=== PATIENT | female | born 1960 | race American Indian/Alaskan Native ===

== ENCOUNTER 2017-05-23 01:00 | Emergency (ER) | payer MEDICAID, OTHER ==
[2017-05-23] MEDS ORDERED: BENADRYL PO ONE ×3 (01:24→02:58)
[2017-05-23] MEDS ORDERED: DELTASONE PO ONE (01:24)
[2017-05-23] MEDS ORDERED: PEPCID ONE (01:24)
[2017-05-23] MEDS ORDERED: DELTASONE ONE (01:24)
[2017-05-23] MEDS ORDERED: PEPCID PO ONE (01:24)
--- NOTE | 2017-05-23 05:04 | Emergency Department Report ---
HPI - General Chief Complaint: Allergic Reaction Time Seen by Provider: 05/23/17 02:58 - HPI HPI: This is a 56 y.o. female presenting with swollen lips and throat from unknown origin. Patient states she have shellfish allergy but she is sure didn't eat anything with shellfish. States she was eating dinner at home and her lips and throat began to swell. She took benadryl 50 mg po at home with minimal improvement. She is able to tolerate liquids but noticed difficulty swallowing candy bar while waiting. ED Past Medical Hx - Past Medical History Previous Medical History?: Yes Additional medical history: Back pain. Neuropathy - Surgical History Past Surgical History?: Yes Additional Surgical History: Left Wrist. Rt clavicle - Social History Smoking Status: Current Every Day Smoker Substance Use Type: Alcohol, Marijuana ED Review of Systems ROS: Stated complaint: ALLERGIC REACTION Other details as noted in HPI Constitutional: no symptoms reported, see HPI. denies: chills, diaphoresis, fever, malaise, weakness Eyes: as per HPI. denies: eye pain, eye discharge, vision change ENT: as per HPI, throat pain. denies: ear pain, dental pain, hearing loss, epistaxis, congestion Respiratory: no symptoms reported, see HPI. denies: cough, orthopnea, shortness of breath, SOB with exertion, SOB at rest, stridor, wheezing Cardiovascular: as per HPI. denies: chest pain, palpitations, dyspnea on exertion, orthopnea, edema, syncope, paroxysmal nocturnal dyspnea Skin: as per HPI, other (swollen lips and face). denies: rash, lesions, change in color, change in hair/nails, pruritus Neurological: as per HPI. denies: headache, weakness, numbness, paresthesias, confusion, abnormal gait, vertigo Psychiatric: as per HPI. denies: anxiety, depression, auditory hallucinations, visual hallucinations, homicidal thoughts, suicidal thoughts Physical Exam - Physical Exam Vital Signs: Vital Signs 05/23/17 01:17 Temperature 98.6 F Pulse Rate 88 Respiratory 20 Rate Blood Pressure 118/72 [Right] O2 Sat by Pulse 99 Oximetry ED Course Vital Signs 05/23/17 01:17 Temperature 98.6 F Pulse Rate 88 Respiratory 20 Rate Blood Pressure 118/72 [Right] O2 Sat by Pulse 99 Oximetry Critical care attestation.: If time is entered above; I have spent that time in minutes in the direct care of this critically ill patient, excluding procedure time. ED Disposition Condition: Stable Referrals: PRIMARY CARE, [Primary Care Provider] - 3-5 Days
--- NOTE | 2017-05-23 05:10 | Emergency Department Report ---
ED Allergic Reaction HPI - General Chief complaint: Allergic Reaction Stated complaint: ALLERGIC REACTION Time Seen by Provider: 05/23/17 02:58 Source: patient Mode of arrival: Ambulatory Limitations: No Limitations - History of Present Illness Initial Comments: This is a 56 y.o. female presenting with swollen lips and throat from unknown origin. Patient states she have shellfish allergy but she is sure didn't eat anything with shellfish. States she was eating dinner at home and her lips and throat began to swell. She took benadryl 50 mg po at home with minimal improvement. She is able to tolerate liquids but noticed difficulty swallowing candy bar while waiting. MD Complaint: allergic reaction, facial swelling -: Last night Exposure: unknown, food Symptoms: facial swelling, lip swelling, difficulty swallowing. denies: rash, itching, difficulty breathing, orolingual swelling, hoarseness, syncopy, dizziness, nausea, vomiting, abdominal pain Severity: moderate Treatment Prior to Arrival: benadryl Previous Allergy History: angioedema, other - Related Data Previous Rx's Medication Instructions Recorded Last Taken Type EPINEPHrine [Epipen 2-Pablo] 0.3 mg IJ ONCE 30 Days #1 05/23/17 Unknown Rx auto.injct Prednisone [predniSONE 10 mg 10 mg PO .TAPER #1 tab.ds.pk 05/23/17 Unknown Rx (6-Day Pack, 21 Tabs)] Allergies Allergy/AdvReac Type Severity Reaction Status Date / Time shellfish derived Allergy Swelling Verified 05/23/17 01:17 ED Review of Systems ROS: Stated complaint: ALLERGIC REACTION Other details as noted in HPI Constitutional: no symptoms reported, see HPI. denies: chills, diaphoresis, fever, malaise, weakness Eyes: as per HPI. denies: eye pain, eye discharge, vision change ENT: as per HPI, throat pain. denies: ear pain, dental pain, hearing loss, epistaxis, congestion Respiratory: no symptoms reported, see HPI. denies: cough, orthopnea, shortness of breath, SOB with exertion, SOB at rest, stridor, wheezing Cardiovascular: as per HPI. denies: chest pain, palpitations, dyspnea on exertion, orthopnea, edema, syncope, paroxysmal nocturnal dyspnea Skin: as per HPI, other (swollen lips and face). denies: rash, lesions, change in color, change in hair/nails, pruritus Neurological: as per HPI. denies: headache, weakness, numbness, paresthesias, confusion, abnormal gait, vertigo Psychiatric: as per HPI. denies: anxiety, depression, auditory hallucinations, visual hallucinations, homicidal thoughts, suicidal thoughts ED Past Medical Hx - Past Medical History Previous Medical History?: Yes Additional medical history: Back pain. Neuropathy - Surgical History Past Surgical History?: Yes Additional Surgical History: Left Wrist. Rt clavicle - Social History Smoking Status: Current Every Day Smoker Substance Use Type: Alcohol, Marijuana - Medications Home Medications: Home Medications Medication Instructions Recorded Confirmed Last Taken Type EPINEPHrine [Epipen 2-Pablo] 0.3 mg IJ ONCE 30 Days #1 05/23/17 Unknown Rx auto.injct Prednisone [predniSONE 10 mg 10 mg PO .TAPER #1 tab.ds.pk 05/23/17 Unknown Rx (6-Day Pack, 21 Tabs)] ED Physical Exam - General Limitations: No Limitations General appearance: alert, in no apparent distress - Head Head exam: Present: normal inspection - Eye Eye exam: Present: normal appearance, PERRL, periorbital swelling. Absent: scleral icterus, conjunctival injection, nystagmus, periorbital tenderness Pupils: Present: normal accommodation. Absent: irregular, unequal, miosis, mydriatic - ENT ENT exam: Present: normal exam, normal orophraynx, mucous membranes moist, TM's normal bilaterally, normal external ear exam, other (swollen tonsils, enlarged tongue, midline). Absent: mucous membranes dry - Neck Neck exam: Present: normal inspection, full ROM. Absent: tenderness, meningismus, lymphadenopathy, thyromegaly - Respiratory Respiratory exam: Present: normal lung sounds bilaterally. Absent: respiratory distress, wheezes, rales, rhonchi, stridor, chest wall tenderness, accessory muscle use, decreased breath sounds, prolonged expiratory - Cardiovascular Cardiovascular Exam: Present: regular rate, normal rhythm, normal heart sounds. Absent: bradycardia, tachycardia, irregular rhythm, systolic murmur, diastolic murmur, rubs, gallop, clicks, JVD, S3, S4 - Neurological Exam Neurological exam: Present: alert, oriented X3, CN II-XII intact, normal gait. Absent: altered, abnormal gait, motor sensory deficit, reflexes normal - Psychiatric Psychiatric exam: Present: normal affect, normal mood. Absent: depressed, agitated, anxious, flat affect, manic, homicidal ideation, suicidal ideation - Skin Skin exam: Present: warm, dry, intact, normal color. Absent: rash, cyanosis, diaphoretic, erythema, urticaria, vesicles, petechiae, pallor, abrasion, ecchymosis ED Course Vital Signs 05/23/17 01:17 Temperature 98.6 F Pulse Rate 88 Respiratory 20 Rate Blood Pressure 118/72 [Right] O2 Sat by Pulse 99 Oximetry Critical care attestation.: If time is entered above; I have spent that time in minutes in the direct care of this critically ill patient, excluding procedure time. ED Disposition Clinical Impression: Angioedema Qualifiers: Encounter type: initial encounter Qualified Code(s): T78.3XXA - Angioneurotic edema, initial encounter Disposition: TO HOME OR SELFCARE Is pt being admited?: No Does the pt Need Aspirin: No Condition: Stable Instructions: Angioedema (ED) Additional Instructions: Follow-up with automated logistics specialist for skin test. Prescriptions: EPINEPHrine [Epipen 2-Pablo] 0.3 mg IJ ONCE 30 Days #1 auto.injct Prednisone [predniSONE 10 mg (6-Day Pack, 21 Tabs)] 10 mg PO .TAPER #1 tab.ds.pk Referrals: PRIMARY CARE, [Primary Care Provider] - 3-5 Days [facility] [Other] - 3-5 Days Forms: Accompanied Note Time of Disposition: 05:18 Print Language: MONGOLIAN
[2017-05-23 05:31] VITALS: BP 121/76
== END 2017-05-23 05:31 | disposition home or self-care (01) ==
LOC: ED 01:00
DX: T78.3XXA Angioneurotic edema, initial encounter (principal); F17.200 Nicotine dependence, unspecified, uncomplicated; F12.10 Cannabis abuse, uncomplicated; Z91.013 Allergy to seafood
CPT/HCPCS: 99282; J7512

== ENCOUNTER 2017-06-05 09:14 | Emergency (ER) | payer MEDICAID ==
[2017-06-05 10:44] VITALS: BP 160/70
[2017-06-05] MEDS ORDERED: XYLOCAINE 2% INFILTRATI ONE (13:16)
[2017-06-05] MEDS ORDERED: NORCO 5/325 PO ONE (13:16)
[2017-06-05] MEDS ORDERED: BACTRIM DS PO ONE (13:17)
--- NOTE | 2017-06-05 13:19 | Emergency Department Report ---
- General Chief complaint: Skin/Abscess/Foreign Body Stated complaint: INSECT BITE Time Seen by Provider: 06/05/17 13:01 Source: patient Mode of arrival: Ambulatory Limitations: No Limitations - History of Present Illness Initial comments: 56-year-old female past medical history neuropathy restless leg syndrome presents with 2-3 days of discomfort below her right breast. Patient has discoloration near an area where she is concerned she may have been bitten by a spider. Visible abscess with surrounding cellulitis approximately 5-6 cm below right breast right upper quadrant. Patient denies nausea vomiting fever or chills. MD complaint: abscess/boil Onset/Timin -: days(s) Severity: moderate Severity scale (0 -10): 6 Quality: aching Improves with: none Worsens with: none Treatments Prior to Arrival: none - Related Data Previous Rx's Medication Instructions Recorded Last Taken Type EPINEPHrine [Epipen 2-Pablo] 0.3 mg IJ ONCE 30 Days #1 05/23/17 Unknown Rx auto.injct Prednisone [predniSONE 10 mg 10 mg PO .TAPER #1 tab.ds.pk 05/23/17 Unknown Rx (6-Day Pack, 21 Tabs)] Cephalexin [Keflex] 500 mg PO Q12HR #14 cap 06/05/17 Unknown Rx Ibuprofen [Motrin] 800 mg PO Q8HR PRN #30 tablet 06/05/17 Unknown Rx Sulfamethoxazole/Trimethoprim 1 each PO BID #14 tablet 06/05/17 Unknown Rx [Bactrim DS TAB] Allergies Allergy/AdvReac Type Severity Reaction Status Date / Time shellfish derived Allergy Swelling Verified 05/23/17 01:17 Abscess Boil HPI - HPI Chief Complaint: Skin/Abscess/Foreign Body Stated Complaint: INSECT BITE Time Seen by Provider: 06/05/17 13:01 Home Medications: Previous Rx's Medication Instructions Recorded Last Taken Type EPINEPHrine [Epipen 2-Pablo] 0.3 mg IJ ONCE 30 Days #1 05/23/17 Unknown Rx auto.injct Prednisone [predniSONE 10 mg 10 mg PO .TAPER #1 tab.ds.pk 05/23/17 Unknown Rx (6-Day Pack, 21 Tabs)] Cephalexin [Keflex] 500 mg PO Q12HR #14 cap 06/05/17 Unknown Rx Ibuprofen [Motrin] 800 mg PO Q8HR PRN #30 tablet 06/05/17 Unknown Rx Sulfamethoxazole/Trimethoprim 1 each PO BID #14 tablet 06/05/17 Unknown Rx [Bactrim DS TAB] Allergies/Adverse Reactions: Allergies Allergy/AdvReac Type Severity Reaction Status Date / Time shellfish derived Allergy Swelling Verified 05/23/17 01:17 ED Review of Systems ROS: Stated complaint: INSECT BITE Other details as noted in HPI Constitutional: denies: chills, fever Eyes: denies: eye pain, eye discharge, vision change ENT: denies: ear pain, throat pain Respiratory: denies: cough, shortness of breath, wheezing Cardiovascular: denies: chest pain, palpitations Endocrine: no symptoms reported Gastrointestinal: denies: abdominal pain, nausea, diarrhea Genitourinary: denies: urgency, dysuria, discharge Musculoskeletal: denies: back pain, joint swelling, arthralgia Skin: as per HPI. denies: rash, lesions Neurological: denies: headache, weakness, paresthesias Psychiatric: denies: anxiety, depression Hematological/Lymphatic: denies: easy bleeding, easy bruising ED Past Medical Hx - Past Medical History Previous Medical History?: Yes Additional medical history: Back pain. Neuropathy, Restless legs - Surgical History Past Surgical History?: Yes Additional Surgical History: Left Wrist. Rt clavicle - Social History Smoking Status: Current Every Day Smoker Substance Use Type: Alcohol, Cocaine, Marijuana, Prescribed, Tranquilizers - Medications Home Medications: Home Medications Medication Instructions Recorded Confirmed Last Taken Type EPINEPHrine [Epipen 2-Pablo] 0.3 mg IJ ONCE 30 Days #1 05/23/17 Unknown Rx auto.injct Prednisone [predniSONE 10 mg 10 mg PO .TAPER #1 tab.ds.pk 05/23/17 Unknown Rx (6-Day Pack, 21 Tabs)] Cephalexin [Keflex] 500 mg PO Q12HR #14 cap 06/05/17 Unknown Rx Ibuprofen [Motrin] 800 mg PO Q8HR PRN #30 tablet 06/05/17 Unknown Rx Sulfamethoxazole/Trimethoprim 1 each PO BID #14 tablet 06/05/17 Unknown Rx [Bactrim DS TAB] ED Physical Exam - General Limitations: No Limitations General appearance: alert, in no apparent distress - Head Head exam: Present: atraumatic, normocephalic - Eye Eye exam: Present: normal appearance, PERRL, EOMI - ENT ENT exam: Present: mucous membranes moist - Neck Neck exam: Present: normal inspection - Respiratory Respiratory exam: Present: normal lung sounds bilaterally. Absent: respiratory distress - Cardiovascular Cardiovascular Exam: Present: regular rate, normal rhythm. Absent: systolic murmur, diastolic murmur, rubs, gallop - GI/Abdominal GI/Abdominal exam: Present: tenderness (abscess with cellulitis below right breast 4-5cm), normal bowel sounds - External exam: Present: normal external exam Speculum exam: Present: normal speculum exam Bi-manual exam: Present: normal bi-manual exam - Extremities Exam Extremities exam: Present: normal inspection - Back Exam Back exam: Present: normal inspection - Neurological Exam Neurological exam: Present: alert, oriented X3, CN II-XII intact, normal gait - Psychiatric Psychiatric exam: Present: normal affect, normal mood - Skin Skin exam: Present: warm, dry, intact, normal color. Absent: rash ED Course Vital Signs 06/05/17 10:40 Temperature 98.4 F Pulse Rate 92 H Respiratory 20 Rate Blood Pressure 160/70 O2 Sat by Pulse 96 Oximetry - I & D Anterior Abdomen Type of Procedure: Simple Site: anteriro right upper abdomen Blade Size: 11 I & D Procedure: betadine prep, gauze wick placed Progress: Area infiltrated with lidocaine 2% without epinephrine. Good local anesthesia achieved. Small horizontal stab incision made. Moderate amount of purulent drainage. Wound culture sent. Significant decompression of abscess. Procedure tolerated well with minimal bleeding. 3-4 inches of quarter-inch iodoform gauze placed into the wound. Covered with 4 x 4 gauze afterward. ED Medical Decision Making - Medical Decision Making A/P: abscess, cellulitis 1- incision and drainage successful. Wound culture sent. Small amount of iodoform gauze placed into the wound. Patient instructed on acute wound care. I advised patient to remove the small amount of iodoform at home later today or tomorrow morning. Patient advised to return to the ED for fevers chills nausea or vomiting or spread of area of cellulitis. Borders marked. 2-Bactrim and Keflex twice a day 7 days. Motrin 800 when necessary 3-patient to follow up with primary care doctor Critical care attestation.: If time is entered above; I have spent that time in minutes in the direct care of this critically ill patient, excluding procedure time. ED Disposition Clinical Impression: Abscess, Encounter for incision and drainage procedure Cellulitis Qualifiers: Site of cellulitis: unspecified site Qualified Code(s): L03.90 - Cellulitis, unspecified Disposition: TO HOME OR SELFCARE Is pt being admited?: No Does the pt Need Aspirin: No Condition: Stable Instructions: Cellulitis (ED), Abscess Incision and Drainage (ED), Abscess (ED) Prescriptions: Cephalexin [Keflex] 500 mg PO Q12HR #14 cap Ibuprofen [Motrin] 800 mg PO Q8HR PRN #30 tablet PRN Reason: Pain Sulfamethoxazole/Trimethoprim [Bactrim DS TAB] 1 each PO BID #14 tablet Referrals: [facility] [Outside] - 3-5 Days [facility] [Outside] - 3-5 Days Forms: Work/School Release Form(ED) Time of Disposition: 13:23
== END 2017-06-05 14:11 | disposition home or self-care (01) ==
LOC: ED 09:14
DX: L02.211 Cutaneous abscess of abdominal wall (principal); L03.311 Cellulitis of abdominal wall; F14.10 Cocaine abuse, uncomplicated; F12.10 Cannabis abuse, uncomplicated; F17.200 Nicotine dependence, unspecified, uncomplicated; Z91.013 Allergy to seafood
CPT/HCPCS: 87116; 87186

== ENCOUNTER 2017-12-18 09:54 | Emergency (ER) | payer MEDICAID ==
[2017-12-18 10:03] VITALS: BP 151/95
[2017-12-18] MEDS ORDERED: NORCO 5/325 PO ONE (10:50)
[2017-12-18] MEDS ORDERED: MOTRIN PO ONE (10:50)
--- NOTE | 2017-12-18 10:52 | Emergency Department Report ---
Blank Doc - Documentation Documentation: Patient is a 57-year-old female who jumped in a shallow pool roughly 3 days ago and is injured her left heel. Patient states she is having difficulty bearing weight. Patient states pain is 8 out of 10 in severity. Patient briefly physical exam does have tenderness to palpation. X-ray will be done
--- NOTE | 2017-12-18 11:04 | Emergency Department Report ---
ED Lower Extremity HPI - General Chief Complaint: Extremity Injury, Lower Stated Complaint: HURT FOOT AND EAR ACHE Time Seen by Provider: 12/18/17 10:42 Source: patient Mode of arrival: Ambulatory Limitations: Physical Limitation - History of Present Illness Initial Comments: This is a 57-year-old -[place] female that presents with bilateral heel pain for 3 days. Patient states she was playing at a pool with her grandchildren and decided to jump into shallow end of pool. She thought the water was deep. She felt severe pain radiate from heel to knee. Patient states the right foot feel better and she is able to apply weight but the left foot she is unable to apply weight and pain is 10/10 on pain scale with weightbearing. She is also complaining of both ear is feeling called for 2 weeks. She has clean both ears with Q-tips with no improvement of symptoms. Patient states "when I popped my ears they don't open". Patient states hearing is muffled. Denies fever, chest pain, difficulty swallowing, sore throat, numbness/tingling, deformity, erythema, and edema. MD Complaint: foot injury (bilateral foot pain worse on left) Onset/Timin -: days(s) Injury: Foot: Right, Left Place: street/outdoors Severity: severe Severity scale (0 -10): 10 Improves With: other (prescribed medication) Worsens With: weight bearing, palpation Context: direct blow Associated Symptoms: unable to bear weight (unable to bear weight on left foot) , able to partially bear weight (on the right foot). denies: snap/pop sensation , swelling, numbness, tingling, ambulatory Treatments Prior to Arrival: other (prescribed pain medication) - Related Data Previous Rx's Medication Instructions Recorded Last Taken Type EPINEPHrine [Epipen 2-Pablo] 0.3 mg IJ ONCE 30 Days #1 05/23/17 Unknown Rx auto.injct Prednisone [predniSONE 10 mg 10 mg PO .TAPER #1 tab.ds.pk 05/23/17 Unknown Rx (6-Day Pack, 21 Tabs)] Cephalexin [Keflex] 500 mg PO Q12HR #14 cap 06/05/17 Unknown Rx Ibuprofen [Motrin] 800 mg PO Q8HR PRN #30 tablet 06/05/17 Unknown Rx Sulfamethoxazole/Trimethoprim 1 each PO BID #14 tablet 06/05/17 Unknown Rx [Bactrim DS TAB] Cipro/Dexameth 0.3/0.1% [Ciprodex 4 drops OT BID 7 Days #1 bottle 12/18/17 Unknown Rx OTIC] Ibuprofen [Motrin 800 MG tab] 800 mg PO Q8HR PRN #15 tablet 12/18/17 Unknown Rx Allergies Allergy/AdvReac Type Severity Reaction Status Date / Time shellfish derived Allergy Swelling Verified 05/23/17 01:17 ED Review of Systems ROS: Stated complaint: HURT FOOT AND EAR ACHE Other details as noted in HPI Constitutional: denies: chills, fever Respiratory: denies: cough, shortness of breath, wheezing Cardiovascular: denies: chest pain, palpitations Gastrointestinal: denies: abdominal pain, nausea, vomiting, diarrhea Musculoskeletal: arthralgia (bilateral heel pain). denies: back pain, joint swelling, myalgia Skin: denies: rash, lesions Neurological: denies: headache, weakness, paresthesias Psychiatric: denies: anxiety, depression ED Past Medical Hx - Past Medical History Previous Medical History?: Yes Additional medical history: Back pain. Neuropathy, Restless legs - Surgical History Past Surgical History?: Yes Additional Surgical History: Left Wrist. Rt clavicle - Social History Smoking Status: Current Every Day Smoker Substance Use Type: Marijuana - Medications Home Medications: Home Medications Medication Instructions Recorded Confirmed Last Taken Type EPINEPHrine [Epipen 2-Pablo] 0.3 mg IJ ONCE 30 Days #1 05/23/17 Unknown Rx auto.injct Prednisone [predniSONE 10 mg 10 mg PO .TAPER #1 tab.ds.pk 05/23/17 Unknown Rx (6-Day Pack, 21 Tabs)] Cephalexin [Keflex] 500 mg PO Q12HR #14 cap 06/05/17 Unknown Rx Ibuprofen [Motrin] 800 mg PO Q8HR PRN #30 tablet 06/05/17 Unknown Rx Sulfamethoxazole/Trimethoprim 1 each PO BID #14 tablet 06/05/17 Unknown Rx [Bactrim DS TAB] Cipro/Dexameth 0.3/0.1% [Ciprodex 4 drops OT BID 7 Days #1 bottle 12/18/17 Unknown Rx OTIC] Ibuprofen [Motrin 800 MG tab] 800 mg PO Q8HR PRN #15 tablet 12/18/17 Unknown Rx ED Physical Exam - General Limitations: Physical Limitation General appearance: alert, in no apparent distress - ENT ENT exam: Present: mucous membranes moist. Absent: normal external ear exam ( bilateral erythematous ear canal, tragal tenderness on right) - Respiratory Respiratory exam: Present: normal lung sounds bilaterally. Absent: respiratory distress - Cardiovascular Cardiovascular Exam: Present: regular rate, normal rhythm. Absent: systolic murmur, diastolic murmur, rubs, gallop - GI/Abdominal GI/Abdominal exam: Present: soft, normal bowel sounds - Expanded Lower Extremity Exam Left Hip exam: Present: normal inspection, full ROM Upper Leg exam: Present: normal inspection, full ROM Knee exam: Present: normal inspection, full ROM Lower Leg exam: Present: normal inspection, full ROM Ankle exam: Present: normal inspection, full ROM Foot/Toe exam: Present: full ROM, calcaneal tenderness. Absent: swelling, abrasion, laceration, ecchymosis, deformity, crepidus, dislocation, erythema, amputation, puncture wound, foreign body, tenderness at base of 5th metatarsal, nail avulsion, subungual hematoma Neuro vascular tendon exam: Present: no vascular compromise Gait: Positive: unable to bear weight Right Hip exam: Present: normal inspection, full ROM Upper Leg exam: Present: normal inspection, full ROM Knee exam: Present: normal inspection, full ROM Lower Leg exam: Present: normal inspection, full ROM Ankle exam: Present: normal inspection, full ROM Foot/Toe exam: Present: calcaneal tenderness. Absent: tenderness, swelling, abrasion, laceration, ecchymosis, deformity, crepidus, dislocation, erythema, amputation, puncture wound, foreign body, tenderness at base of 5th metatarsal, nail avulsion, subungual hematoma Neuro vascular tendon exam: Present: no vascular compromise Gait: Positive: observed and limited by pain - Neurological Exam Neurological exam: Present: alert, oriented X3 - Psychiatric Psychiatric exam: Present: normal affect, normal mood - Skin Skin exam: Present: warm, dry, intact, normal color. Absent: rash ED Course Vital Signs 12/18/17 09:59 Temperature 98.0 F Pulse Rate 92 H Respiratory 16 Rate Blood Pressure 151/95 O2 Sat by Pulse 100 Oximetry ED Lower Extremity MDM - Radiology Data Radiology results: report reviewed, image reviewed LEFT FOOT: Healed injury, pain. The bony architecture is intact. Bony alignment is normal. No soft tissue abnormalities are seen. The joint spaces appear preserved. IMPRESSION: Normal left foot. - Medical Decision Making This is a 57 y.o. female presents with bilateral calcaneal pain x 2 days and bilateral clogged ears for 2 weeks. Patient was examined by me and Dr. Giron. Vital stable. Unsure a.m. patient received [place] and ibuprofen once while in ER. Obtained x-ray of left foot and dictated by radiologist, no acute findings. We'll refer to podiatry and orthopedics and advised to follow-up with them if symptoms do not improve in the next week. Start ciprodex for otitis externa. Patient informed of results. Start ibuprofen for pain. Plan discussed with patient to discharge home and treat outpatient. She agrees with ER plan. Patient discharged home in stable condition. Follow up with PCP in 2-3 days. Critical care attestation.: If time is entered above; I have spent that time in minutes in the direct care of this critically ill patient, excluding procedure time. ED Disposition Clinical Impression: Bilateral foot pain Otitis externa Qualifiers: Otitis externa type: swimmer's ear Chronicity: acute Laterality: bilateral Qualified Code(s): H60.333 - Swimmer's ear, bilateral Muscle strain of left foot Qualifiers: Encounter type: initial encounter Qualified Code(s): S96.912A - Strain of unspecified muscle and tendon at ankle and foot level, left foot, initial encounter Disposition: - TO HOME OR SELFCARE Is pt being admited?: No Does the pt Need Aspirin: No Condition: Stable Instructions: Arthralgia (ED), Foot Sprain (ED), Otitis Externa (ED) Additional Instructions: Rest, use ice or heat on affected area for 20 minutes and off for 2 hours. Give tylenol or ibuprofen for pain every 6-8 hours. Take antibiotics as prescribed to avoid recurrence of the ear infection. Avoid high altitudes, may worsen the pain during ear infection. If symptoms do not improve within 2 to 3 days, then follow up with primary care provider. If left foot pain is not improved in 1-2 weeks follow-up with podiatry or orthopedic surgery. Prescriptions: Cipro/Dexameth 0.3/0.1% [Ciprodex OTIC] 4 drops OT BID 7 Days #1 bottle Ibuprofen [Motrin 800 MG tab] 800 mg PO Q8HR PRN #15 tablet PRN Reason: Pain, Moderate (4-6) Referrals: [facility] [Outside] - 3-5 Days [facility] [Provider Group] - 3-5 Days KAREN SANDOVAL MD [Staff Physician] - 3-5 Days [facility] [Provider Group] - 3-5 Days Time of Disposition: 13:36 Print Language: ALBANIAN
--- NOTE | 2017-12-18 13:13 | XRay Report ---
LEFT FOOT: Healed injury, pain. The bony architecture is intact. Bony alignment is normal. No soft tissue abnormalities are seen. The joint spaces appear preserved. IMPRESSION: Normal left foot.
== END 2017-12-18 13:46 | disposition home or self-care (01) ==
LOC: ED 09:54
DX: S96.912A Strain of unspecified muscle and tendon at ankle and foot level, left foot, initial encounter (principal); H60.333 Swimmer's ear, bilateral; M79.671 Pain in right foot; M79.672 Pain in left foot; F17.200 Nicotine dependence, unspecified, uncomplicated; F12.90 Cannabis use, unspecified, uncomplicated; Z91.013 Allergy to seafood; W16.031A Fall into swimming pool striking wall causing drowning and submersion, initial encounter; Y93.11 Activity, swimming; Y99.2 Volunteer activity; Y92.488 Other paved roadways as the place of occurrence of the external cause

== ENCOUNTER 2018-08-12 13:11 | Emergency (ER) | payer MEDICAID, OTHER ==
[2018-08-12 13:46] VITALS: BP 138/82
--- NOTE | 2018-08-12 13:46 | Emergency Department Report ---
Chief Complaint: Fall Stated Complaint: LFT SIDE PAIN/INJURY Time Seen by Provider: 08/12/18 13:44 - HPI History of Present Illness: Pt is c/o right sided rib pain that began two days ago she states she slipped going up two steps due to the steps being wet she denies any SOB or any further injury VSS MSE complete MSE screening note: Focused history and physical exam performed. Due to findings the following was ordered: xr ribs right ED Disposition for MSE Condition: Stable
--- NOTE | 2018-08-12 14:57 | Emergency Department Report ---
ED Back Pain/Injury HPI - General Chief Complaint: Fall Stated Complaint: LFT SIDE PAIN/INJURY Time Seen by Provider: 08/12/18 13:44 Source: patient Limitations: No Limitations - History of Present Illness Initial Comments: Patient is a 57 year-old female who comes to the ER complaining of right side pain. This is after she fell down 2 steps a week ago. She has been taking her home gabapentin Karen has helped with the pain. However, she is out of her gabapentin. pmh chronic pain neuropathy home rx muscle relaxer lala GAO Complaint: other (R RIB PAIN LOW THORACIC LATERAL RIB CAGE) -: week(s) Similar Symptoms Previously: No Place: home Radiation: none Improves With: medication Worsens With: movement Associated Symptoms: denies other symptoms - Related Data Previous Rx's Medication Instructions Recorded Last Taken Type EPINEPHrine [Epipen 2-Pablo] 0.3 mg IJ ONCE 30 Days #1 05/23/17 Unknown Rx auto.injct Prednisone [predniSONE 10 mg 10 mg PO .TAPER #1 tab.ds.pk 05/23/17 Unknown Rx (6-Day Pack, 21 Tabs)] Ibuprofen [Motrin] 800 mg PO Q8HR PRN #30 tablet 06/05/17 Unknown Rx Sulfamethoxazole/Trimethoprim 1 each PO BID #14 tablet 06/05/17 Unknown Rx [Bactrim DS TAB] cephALEXin [Keflex] 500 mg PO Q12HR #14 cap 06/05/17 Unknown Rx Cipro/Dexameth 0.3/0.1% [Ciprodex 4 drops OT BID 7 Days #1 bottle 12/18/17 Unknown Rx OTIC] Ibuprofen [Motrin 800 MG tab] 800 mg PO Q8HR PRN #15 tablet 12/18/17 Unknown Rx Allergies Allergy/AdvReac Type Severity Reaction Status Date / Time shellfish derived Allergy Swelling Verified 05/23/17 01:17 ED Review of Systems ROS: Stated complaint: LFT SIDE PAIN/INJURY Other details as noted in HPI Comment: All other systems reviewed and negative Constitutional: denies: chills Eyes: denies: eye pain ENT: denies: ear pain Respiratory: denies: cough Cardiovascular: denies: chest pain Endocrine: denies: flushing Gastrointestinal: denies: nausea Genitourinary: denies: dysuria Musculoskeletal: as per HPI, other (RIB PAIN) Skin: denies: rash Neurological: denies: headache Hematological/Lymphatic: denies: easy bleeding ED Past Medical Hx - Past Medical History Back pain. Neuropathy, Restless legs ED Back Pain Physical Exam - Exam General: Vital signs noted. No distress. Alert and acting appropriately. Back/Abdomen: No Abdominal Tenderness, No Perithoracic Tenderness, No Perilumbar Tenderness, No Sacroiliac Tenderness, No Flank Tenderness, No Straight Leg Raise Pain Neuro: Yes Normal Sensation, Yes Normal DTR's, Yes Normal Gait, No Motor Weakness ED Course Vital Signs 08/12/18 13:44 Temperature 98.2 F Pulse Rate 89 Respiratory 18 Rate Blood Pressure 138/82 O2 Sat by Pulse 100 Oximetry Ed Back Pain Tests - Tests Tests: Normal X Rays ED Medical Decision Making - Radiology Data Radiology results: image reviewed - Medical Decision Making pt eloped after provider exam and before xray resulted. - Differential Diagnosis RO RIB FX Critical care attestation.: If time is entered above; I have spent that time in minutes in the direct care of this critically ill patient, excluding procedure time. ED Disposition Clinical Impression: Rib pain on right side, Medication refill Disposition: ELOPED Is pt being admited?: No Does the pt Need Aspirin: No Condition: Stable Referrals: LAUREN VALDIVIA MD [Primary Care Provider] - 3-5 Days Time of Disposition: 15:02
[2018-08-12] MEDS ORDERED: NORCO 5/325 PO ONE (15:01)
--- NOTE | 2018-08-12 15:35 | XRay Report ---
RIGHT RIBS, 3 VIEWS: History: pain. A right lateral 10th rib deformity is identified which could represent an acute fracture. The remaining right ribs are intact. The right lung is well-aerated. IMPRESSION: Probable right lateral 10th rib fracture. Correlate with the patient.
== END 2018-08-12 15:43 | disposition left against medical advice (07) ==
LOC: ED 13:11
DX: R07.81 Pleurodynia (principal); Z76.0 Encounter for issue of repeat prescription; G62.9 Polyneuropathy, unspecified; Z91.013 Allergy to seafood; W10.9XXA Fall (on) (from) unspecified stairs and steps, initial encounter; Y93.89 Activity, other specified; Y92.009 Unspecified place in unspecified non-institutional (private) residence as the place of occurrence of the external cause; Y99.8 Other external cause status
CPT/HCPCS: 99282